=== PATIENT | female | born 1990 | race Caucasian/White ===

== ENCOUNTER → 2020-01-26 09:52 | Outpatient (CLI) | payer BC, SELFPAY ==
[2020-01-26 11:30] LABS: Coronavirus 19 IgG Antibody Negative (Negative); Coronavirus 19 IgM Antibody Negative (Negative)
== END ==
PROVIDERS: Visit Provider Family Medicine
DX: Z03.818 Encounter for observation for suspected exposure to other biological agents ruled out (principal); Z11.59 Encounter for screening for other viral diseases
CPT/HCPCS: 36415; 86328

== ENCOUNTER → 2020-02-20 12:40 | Outpatient (CLI) | payer BC, SELFPAY ==
[2020-02-20 14:07] LABS: Free T4 (Free Thyroxine) 0.95 ng/dl (0.78-2.19)
[2020-02-20 14:21] LABS: Thyroid Stimulating Hormone 2.31 uIU/mL (0.465-4.68)
[2020-02-21 10:02] LABS: Prolactin 6.6 ng/mL (4.8-23.3)
[2020-02-21 10:53] LABS: Estradiol 28.3 pg/mL (.); FSH 8.1 mIU/mL (.); LH 4.5 mIU/mL (.); Progesterone 0.2 ng/mL (.)
== END ==
PROVIDERS: Visit Provider Nurse Practitioner
DX: N97.1 Female infertility of tubal origin (principal)
CPT/HCPCS: 36415; 82670; 83001; 83002; 84144; 84146; 84439; 84443

== ENCOUNTER → 2020-07-17 18:08 | Outpatient (CLI) | payer BC, SELFPAY ==
[2020-07-17 21:34] LABS: Coronavirus 19 IgG Antibody Negative (Negative)
[2020-07-17 21:35] LABS: Coronavirus 19 IgM Antibody Negative (Negative)
== END ==
PROVIDERS: Visit Provider Physician Assistant
DX: Z11.52 Encounter for screening for COVID-19 (principal)
CPT/HCPCS: 86328

== ENCOUNTER → 2020-11-20 16:23 | Outpatient (CLI) | payer BC, SELFPAY ==
[2020-11-20 17:44] LABS: HCG,Quantitative 2056 mIU/ml (0-5.42)
== END ==
PROVIDERS: Visit Provider Obstetrics & Gynecology
DX: N92.6 Irregular menstruation, unspecified (principal)
CPT/HCPCS: 84702

== ENCOUNTER 2021-06-20 11:38 | Emergency (ER) | payer BC, SELFPAY ==
[2021-06-20 12:43] LABS: UTC Influenza A Antigen Negative (Negative)
[2021-06-20 12:44] LABS: UTC Influenza B Antigen Negative (Negative)
[2021-06-20 12:46] LABS: UTC Strep Screen (Rapid) Negative (Negative)
[2021-06-20 12:47] VITALS: BP 146/88; PULSE 93; RESP 18; TEMP 37.1; O2SAT 99; BMI 49.8
--- NOTE | 2021-06-20 12:53 | HMH.EDUTC ---
[facility] [place] Disposition Clinical Impression: Sinusitis Qualifiers: Sinusitis location: unspecified location Chronicity: unspecified Qualified Code(s): J32.9 - Chronic sinusitis, unspecified Disposition: Home, Self-Care Condition on Discharge: Good Instructions: Sinusitis, Acute Cystitis, DI for Sinusitis Additional Instructions: Follow up with OBGYN as soon as possible Take medication as prescribed Follow up with Family Doctor if needed Straight to ER if any life threatening symptoms Return if needed Prescriptions: Cefdinir [Omnicef 300mg Capsule] 300 mg PO BID #20 cap Transmission Status: Pending to [id number] Referrals: Juan M Pineda MD [Primary Care Provider] - As needed Time of Disposition: 13:10 Medical Decision Making - Waylon Inquiry Pt receiving controlled substance: No Waylon was queried for this patient: No Vital Signs: 06/20/21 12:47 Temperature 98.7 F Temperature Source Oral Pulse Rate [Right Radial] 93 H Respiratory Rate 18 Blood Pressure [Right Arm] 146/88 H Blood Pressure Mean [Right Arm] 107 Blood Pressure Source [Right Arm] Automatic Cuff Blood Pressure Position [Right Arm] Sitting 02 Sat by Pulse Oximetry 99 Oxygen Delivery Method Room Air - Lab Data Lab results reviewed: Yes: I reviewed the patient's lab results. Lab Results 06/20/21 12:22: Influenza Type A Ag Negative, Influenza Type B Ag Negative 06/20/21 12:45: Strep Scn [facility] Negative 06/20/21 12:56: Urine Color Dark yellow, Urine Appearance Clear, Urine pH 6.0, Ur Specific [place] 1.030, Urine Protein 1+, Urine Glucose (UA) Negative, Urine Ketones 1+, Urine Blood 3+, Urine Nitrate Negative, Urine Bilirubin Negative, Urine Urobilinogen 0.2, Ur Leukocyte Esterase Negative Orders (Tests/Meds): ORDERS Category Date Time Status Covid-19 Nasal PCR ([facility]) Routine Lab 06/20/21 12:56 Ordered Strep Screen Confirmation Stat Micro 06/20/21 12:45 Received Medical Decision Narrative: Medication discussed with pharmacy due to 35wks OB [facility] [place] HPI - General Stated complaint: fever Time Seen by Provider: 06/20/21 12:53 Mode of Arrival: Ambulatory Source of Information: Patient Limitations: No Limitations Description of Symptoms (Recalled from Triage Doc. by RN): Pt stated that she is 35 wks and has a fever 102, body aches, congestion, fatigue, and sinus pressure. HEENT Symptoms (Recalled from RN notes): Yes Resp Symptoms (Recalled from RN notes): No Skin Symptoms (Recalled from RN notes): No MS Symptoms (Recalled from RN notes): No Functional Status (Recalled from RN notes): n/a - History of Present Illness Provider Complaint: Patient states that she has been having sinus pain and pressure and pressure like feeling in her ears with drainage in the back of her throat States that she feels like she may have a sinus infection States that last night she had a fever of 102.0 and she called her OBGYN and they recommended that she come in today and get checked - Related Data Home Medications Medication Instructions Recorded Confirmed Sertraline HCl [Zoloft] 200 mg PO DAILY 06/20/21 06/20/21 Previous Rx's Medication Instructions Recorded Cefdinir [Omnicef 300mg Capsule] 300 mg PO BID #20 cap 06/20/21 Allergies Allergy/AdvReac Type Severity Reaction Status Date / Time NO KNOWN ALLERGIES Allergy Uncoded 07/03/20 10:53 - Worker's Comp Is this a Worker's Comp case?: No Is this an [facility] Worker's Comp?: No Is this a [place] Worker's Comp?: No H History - Hepatitis A Screen Drug use history?: No High risk sexual behaviors?: No History of sexually transmitted infection?: No Currently employed?: No Childcare worker?: No Do you have indoor plumbing?: Yes Do you have electricity?: Yes Attestation statement:: This patient has been screened for Hepatitis A risk factors. I have reviewed the patient's past medical history: Yes Medical History: Reports:: Depression Other Surge
[2021-06-20 13:04] LABS: Apearance,Urine Clear (Clear); Bilirubin,Urine Negative (Negative); Blood, Urine 3+ (Negative); Color,Urine Dark Yellow (Yellow); Glucose,Urine (UA) Negative (Negative); Ketones,Urine 1+ (Negative); Protein,Urine 1+ (Negative); UTC Leukocyte Esterase,Urine Negative (Negative); UTC Nitrate,Urine Negative (Negative); Urobilinogen,Urine 0.2 EU/dl (0.2)
[2021-06-20 13:21] VITALS: BP 146/88; PULSE 93; RESP 18; TEMP 37.1; O2SAT 99
== END 2021-06-20 13:21 | disposition home or self-care (01) ==
PROVIDERS: Emergency Provider Nurse Practitioner; PCP Family Medicine
DX: U07.1 COVID-19 (principal); J32.9 Chronic sinusitis, unspecified; Z3A.35 35 weeks gestation of pregnancy
CPT/HCPCS: 81003; 87804; 87880; 99202; C9803; G0463; U0003; U0005

== ENCOUNTER 2021-08-15 12:16 | Emergency (ER) | payer BC, SELFPAY ==
[2021-08-15 12:40] VITALS: BP 140/87; PULSE 67; RESP 16; TEMP 36.8; O2SAT 99; BMI 45.4
--- NOTE | 2021-08-15 12:43 | XR_ITS ---
FINAL REPORT CLINICAL HISTORY: fall, swelling FINDINGS: LEFT ANKLE: Three views of the left ankle were obtained. There is no acute fracture or dislocation. There are chronic calcifications inferior to the medial malleolus. There is a small plantar calcaneal spur. There is a chronic calcification adjacent to the anterior talus. There is diffuse soft tissue swelling. IMPRESSION: Swelling with no acute bony abnormality. Reviewed, Interpreted and Dictated by Amilcar Reza III, MD Transcribed by Sharad Epperson Authenticated by Amilcar Reza III, MD on 08/15/2021 01:48:[address] [facility]
--- NOTE | 2021-08-15 12:43 | XR_ITS ---
FINAL REPORT CLINICAL HISTORY: fall, swelling FINDINGS: LEFT FOOT Three views of the left foot demonstrate no acute fracture or dislocation. There is a chronic calcification adjacent to the anterior talus. IMPRESSION: No acute bony abnormality. Reviewed, Interpreted and Dictated by Amilcar Reza III, MD Transcribed by Sharad Epperson Authenticated by Amilcar Reza III, MD on 08/15/2021 01:48:30 PM [facility]
[2021-08-15 13:38] VITALS: PULSE 67; RESP 16; TEMP 36.8; O2SAT 99; BMI 45.1
--- NOTE | 2021-08-15 14:07 | HMH.EDUTC ---
[facility] [place] Disposition Clinical Impression: Ankle sprain Qualifiers: Encounter type: initial encounter Involved ligament of ankle: unspecified ligament Laterality: left Qualified Code(s): S93.402A - Sprain of unspecified ligament of left ankle, initial encounter Disposition: Home, Self-Care Condition on Discharge: Good Instructions: How To Perform RICE (Rest, Ice, Compress, Elevate), How to Use Crutches Additional Instructions: *weight bearing as tolerated *RICE, Rest the extremity, Ice 15-20 minutes 3-4 times daily, Compress- wear the kota wrap as discussed as much as possible to help reduce swelling and pain, Elevate the extremity when at rest *Kota wrap is for support and help control swelling, use it except in the shower. Be sure that is not to tight but not to loose either *Elevate when resting *Ibuprofen as directed on package every 6-8 hours as needed for pain an inflammation. If need something more can take Tylenol in between doses of Ibuprofen to help Immediately follow up with your family doctor for new or worsening of symptoms, or no noticeable improvement over the next 3-5 days Prescriptions: Crutch 1 each [facility] DIRECTED #2 each Prescription Printed Referrals: Juan M Pineda MD [Primary Care Provider] - As needed Olya Tran DPM [Staff Physician] - Gayle England APRN [Nurse Practitioner] - Time of Disposition: 14:18 Medical Decision Making - Waylon Inquiry Pt receiving controlled substance: No Waylon was queried for this patient: No Vital Signs: 08/15/21 12:40 08/15/21 13:38 Temperature 98.3 F 98.3 F Temperature Source Oral Oral Pulse Rate [Right] 67 67 Respiratory Rate 16 16 Blood Pressure [Right Arm] 140/87 Blood Pressure Mean [Right Arm] 104 Blood Pressure Source [Right Arm] Automatic Cuff Blood Pressure Position [Right Arm] Sitting 02 Sat by Pulse Oximetry 99 99 Oxygen Delivery Method Room Air - Radiology Data #1 Image(s): Ankle Image Reviewed: Yes I have reviewed radiologist's interpretation IMPRESSION: Swelling with no acute bony abnormality. #2 Image(s): Foot/Toes Image Reviewed: Yes I have reviewed radiologist's interpretation IMPRESSION: No acute bony abnormality. [facility] [place] HPI - General Stated complaint: ao 08/15 fall, left foot/ankle pain/swollen Time Seen by Provider: 08/15/21 14:07 Mode of Arrival: Ambulatory Source of Information: Patient Limitations: No Limitations Description of Symptoms (Recalled from Triage Doc. by RN): pt states she twisted her L ankle this am. pt c/o L ankle pain and swelling. HEENT Symptoms (Recalled from RN notes): No Resp Symptoms (Recalled from RN notes): No Skin Symptoms (Recalled from RN notes): No MS Symptoms (Recalled from RN notes): Yes Functional Status (Recalled from RN notes): wnl - History of Present Illness Provider Complaint: Patient states that she was walking earlier when she rolled her left ankle States that every since she has been having pain and swelling in her left ankle and foot so she came in to get it checked out - Related Data Home Medications Medication Instructions Recorded Confirmed Sertraline HCl [Zoloft] 200 mg PO DAILY 06/20/21 06/20/21 Previous Rx's Medication Instructions Recorded Cefdinir [Omnicef 300mg Capsule] 300 mg PO BID #20 cap 06/20/21 Crutch 1 each [facility] DIRECTED #2 each 08/15/21 Allergies Allergy/AdvReac Type Severity Reaction Status Date / Time NO KNOWN ALLERGIES Allergy Uncoded 07/03/20 10:53 - Worker's Comp Is this a Worker's Comp case?: No [facility] History - Hepatitis A Screen Drug use history?: No High risk sexual behaviors?: No History of sexually transmitted infection?: No Currently employed?: No Childcare worker?: No Do you have indoor plumbing?: Yes Do you have electricity?: Yes Attestation statement:: This patient has been screened for Hepatitis A risk factors. I have reviewed the patient's past medical history: Yes Medical History: Repor
[2021-08-15 14:27] VITALS: BP 140/87; PULSE 67; RESP 16; TEMP 36.8
== END 2021-08-15 14:27 | disposition home or self-care (01) ==
PROVIDERS: Emergency Provider Nurse Practitioner; PCP Family Medicine
DX: S93.402A Sprain of unspecified ligament of left ankle, initial encounter (principal); X50.1XXA Overexertion from prolonged static or awkward postures, initial encounter; Y92.89 Other specified places as the place of occurrence of the external cause
CPT/HCPCS: 29515; 73610; 73630; 99203; G0463

== ENCOUNTER → 2022-09-30 13:46 | Outpatient (CLI) | payer BC, SELFPAY ==
--- NOTE | 2022-09-30 13:51 | US_ITS ---
FINAL REPORT CLINICAL HISTORY: EPIDERMAL CYST BACK OF NECK FINDINGS: Limited sonographic images of the back of the neck were obtained. There is a 5 mm anechoic lesion in the area of interest. It shows increased through transmission. No internal flow is identified. Findings are favored to represent a sebaceous cyst or other benign dermal cystic lesion IMPRESSION: Sebaceous cyst versus other benign dermal lesion in the area of interest. Reviewed, Interpreted and Dictated by Claudia Ruggiero MD Transcribed by Gay Avendano Authenticated and [facility]
== END ==
PROVIDERS: PCP Family Medicine; Visit Provider Physician Assistant
DX: L72.0 Epidermal cyst (principal)
CPT/HCPCS: 76604

== ENCOUNTER 2023-08-04 21:00 | Outpatient (CLI) | payer BC, SELFPAY | END 2023-08-04 23:59 | LOC: LAB.DROPOF 21:01 | PROVIDERS: PCP Student in an Organized Health Care Education/Training Program; Visit Provider Student in an Organized Health Care Education/Training Program | DX: J02.9 Acute pharyngitis, unspecified (principal); Z20.818 Contact with and (suspected) exposure to other bacterial communicable diseases | CPT/HCPCS: 87070; 87635 ==

== ENCOUNTER 2024-03-23 11:00 | Outpatient (CLI) | payer BC, SELFPAY ==
[2024-03-23 18:51] LABS: Adenovirus,PCR Not Detected (NotDetected); Bordetella Pertussis Not Detected (NotDetected); Chlamydophila Pneumoniae, PCR Not Detected (NotDetected); Coronavirus 19, PCR Not Detected (NotDetected); Coronavirus 229E Not Detected (NotDetected); Coronavirus NL63 Not Detected (NotDetected); Coronavirus OC43 Not Detected (NotDetected); Coronovirus HKU1,PCR Not Detected (NotDetected); Human Metapneumovirus Not Detected (NotDetected); Influenza A, PCR Not Detected (NotDetected); Influenza AH1, 2009 Not Detected (NotDetected); Influenza AH1, PCR Not Detected (NotDetected); Influenza AH3,PCR Not Detected (NotDetected); Influenza B, PCR Not Detected (NotDetected); Mycoplasma Pneumoniae, PCR Not Detected (NotDetected); Parainfluenza 1, PCR Not Detected (NotDetected); Parainfluenza 2, PCR Not Detected (NotDetected); Parainfluenza 3, PCR Not Detected (NotDetected); Parainfluenza 4, PCR Not Detected (NotDetected); Respiratory Syncytial Virus Not Detected (NotDetected); Rhinovirus/Enterovirus Not Detected (NotDetected)
== END 2024-03-23 23:59 | disposition home or self-care (01) ==
LOC: LAB.DROPOF 03-24 10:08
PROVIDERS: PCP Nurse Practitioner Family; Visit Provider Nurse Practitioner Family
DX: J02.9 Acute pharyngitis, unspecified (principal)
CPT/HCPCS: 87070; 87265; 87486; 87581; 87632; 87635

== ENCOUNTER 2024-08-02 10:34 | Outpatient (CLI) | payer BC, SELFPAY | END 2024-08-02 23:59 | disposition home or self-care (01) | LOC: LAB.DROPOF 08-03 10:34 | PROVIDERS: PCP Student in an Organized Health Care Education/Training Program; Visit Provider Student in an Organized Health Care Education/Training Program | DX: J02.9 Acute pharyngitis, unspecified (principal) | CPT/HCPCS: 87070; 87077 ==